=== PATIENT | female | born 1950 | race Caucasian/White ===

== ENCOUNTER 2017-09-24 13:29 | Emergency (ER) | payer MEDICARE ==
[~2017-09-24] VITALS: Ht 165.1 cm; Wt 70.0 kg
[~2017-09-24 13:29] MED LIST: FLUO60TA PO; GABA300C5 PO; LEVO137T2 PO; TEMA15CA PO
[2017-09-24 13:31] VITALS: BP 144/75; PULSE 101; RESP 16; TEMP 98.6; O2SAT 100
--- NOTE | 2017-09-24 13:38 | PD ---
HPI Chief Complaint: Abdominal Pain Time Seen by Provider: 13:36 Travel History International Travel<30 days: No Contact w/Intl Traveler<30days: No Traveled to known affect area: No History of Present Illness HPI Patient is currently on p.o. chemotherapy, for active ovarian CA with metastases according to her latest PET scan about a month ago. She has an upcoming study as well as appointment with her oncologist. However she comes in complaining of diffuse abdominal pain, 8 out of 10, nonradiating but generalized. No alleviating or aggravating factors. No associated factors such as fever, rash, chest pain, back pain, flank pain, nausea, vomiting, diarrhea presently. 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) Psychiatric: Yes (DEPRESSION) Reproductive: No Respiratory: No Immunizations Current: No Thyroid Disease: Yes Ulcer: No Past Surgical History Abdominal Surgery: No (LAPAROTOMY) AICD: No Body Medical Devices: NONE Cardiac Surgery: No Ear Surgery: No Endocrine Surgery: Yes (THYROIDECTOMY) Eye Surgery: No Gynecologic Surgery: Yes (complete hysterectomy) Joint Replacement: No Oral Surgery: Yes (TONSILLECTOMY) Pacemaker: No Thoracic Surgery: No Other Surgery: Yes (THYROID FOR GOITER) Social History Alcohol Use: Yes (DAILY WINE) Tobacco Use: No Substance Use: No Allergies-Medications (Allergen,Severity, Reaction): Coded Allergies: latex (Unverified Adverse Reaction, Severe, SWELLING, 02/05/17) HIVES SOB Reported Meds & Prescriptions Reported Meds & Active Scripts Active Levothyroxine (Levothyroxine Sodium) 137 Mcg Tab 137 Mcg PO DAILY Reported Metoclopramide (Metoclopramide HCl) 10 Mg Tab 10 Mg PO TIDAC Xanax (Alprazolam) 0.25 Mg Tab 0.25 Mg PO HS PRN Omeprazole 40 Mg Cap 40 Mg PO DAILY Fluoxetine (Fluoxetine HCl) 40 Mg Cap 40 Cap PO DAILY Temazepam 15 Mg Cap 15 Mg PO HS PRN Gabapentin 300 Mg Cap 300 Mg PO BID Zejula (Niraparib) 100 Mg Capsule 200 Mg PO HS Review of Systems General / Constitutional: No: Fever Eyes: No: Visual changes HENT: No: Headaches Cardiovascular: No: Chest Pain or Discomfort Respiratory: No: Shortness of Breath Gastrointestinal: Positive: Abdominal Pain Genitourinary: No: Dysuria Musculoskeletal: No: Pain Skin: No Rash Neurologic: No: Weakness Psychiatric: No: Depression Endocrine: No: Polydipsia Hematologic/Lymphatic: No: Easy Bruising Physical Exam Narrative GENERAL: SKIN: Warm and dry. HEAD: Atraumatic. Normocephalic. EYES: Pupils equal and round. No scleral icterus. No injection or drainage. ENT: No nasal bleeding or discharge. Mucous membranes pink and moist. NECK: Trachea midline. No JVD. CARDIOVASCULAR: Regular rate and rhythm. RESPIRATORY: No accessory muscle use. Clear to auscultation. Breath sounds equal bilaterally. GASTROINTESTINAL: Abdomen soft, non-tender, nondistended. MUSCULOSKELETAL: Extremities without clubbing, cyanosis, or edema. No obvious deformities. NEUROLOGICAL: Awake and alert. No obvious cranial nerve deficits. Motor grossly within normal limits. Five out of 5 muscle strength in the arms and legs. Normal speech. PSYCHIATRIC: Appropriate mood and affect; insight and judgment normal. Data Data Last Documented VS Vital Signs Date Time Temp Pulse Resp B/P (MAP) Pulse Ox O2 Delivery O2 Flow Rate FiO2 09/24/17 16:51 76 18 149/77 (101) 99 Room Air 09/24/17 13:31 98.6 Orders Orders Complete Blood Count With Diff (09/24/17 13:41) Comprehensive Metabolic Panel (09/24/17 13:41) Lipase (09/24/17 13:41) Prothrombin Time / Inr (Pt) (09/24/17 13:41) Act Partial Throm Time (Ptt) (09/24/17 13:41) Urinalysis - C+S If Indicated (09/24/17 13:41) Ct Abd/Pel W/O Iv Contrast (09/24/17 13:41) Iv Access Insert/Monitor (09/24/17 13:41) Ecg Monitoring (09/24/17 13:41) Oximetry (09/24/17 13:41) NPO (09/24/17 13:41) Ondansetron Inj (Zofran Inj) (09/24/17 13:45) Sodium Chloride 0.9% Flush (Ns Flush) (09/24/17 13:45) Hydromorphone Pf Inj (Dilaudid Pf Inj) (09/24/17 13:45) Sodium Chlor 0.9% 1000 Ml Inj (Ns 1000 M (09/24/17 13:47) Hydromorphone Pf Inj (Dilaudid Pf Inj) (09/24/17 14:13) Hydromorphone Pf Inj (Dilaudid Pf Inj) (09/24/17 16:00) Hydromorphone Pf Inj (Dilaudid Pf Inj) (09/24/17 16:40) Labs Laboratory Tests Test 09/24/17 14:20 09/24/17 16:50 White Blood Count 6.0 TH/MM3 Red Blood Count 3.63 MIL/MM3 Hemoglobin 12.2 GM/DL Hematocrit 34.3 % Mean Corpuscular Volume 94.4 FL Mean Corpuscular Hemoglobin 33.5 PG Mean Corpuscular Hemoglobin Concent 35.5 % Red Cell Distribution Width 15.1 % Platelet Count 206 TH/MM3 Mean Platelet Volume 7.9 FL Neutrophils (%) (Auto) 71.5 % Lymphocytes (%) (Auto) 18.3 % Monocytes (%) (Auto) 8.6 % Eosinophils (%) (Auto) 0.8 % Basophils (%) (Auto) 0.8 % Neutrophils # (Auto) 4.3 TH/MM3 Lymphocytes # (Auto) 1.1 TH/MM3 Monocytes # (Auto) 0.5 TH/MM3 Eosinophils # (Auto) 0.0 TH/MM3 Basophils # (Auto) 0.1 TH/MM3 CBC Comment DIFF FINAL Differential Comment Prothrombin Time 10.5 SEC Prothromb Time International Ratio 1.0 RATIO Activated Partial Thromboplast Time 25.8 SEC Blood Urea Nitrogen 23 MG/DL Creatinine 1.17 MG/DL Random Glucose 100 MG/DL Total Protein 8.0 GM/DL Albumin 3.7 GM/DL Calcium Level 9.4 MG/DL Alkaline Phosphatase 114 U/L Aspartate Amino Transf (AST/SGOT) 37 U/L Alanine Aminotransferase (ALT/SGPT) 33 U/L Total Bilirubin 0.7 MG/DL Sodium Level 133 MEQ/L Potassium Level 3.6 MEQ/L Chloride Level 99 MEQ/L Carbon Dioxide Level 25.2 MEQ/L Anion Gap 9 MEQ/L Estimat Glomerular Filtration Rate 46 ML/MIN Lipase 167 U/L Urine Color LIGHT-YELLOW Urine Turbidity CLEAR Urine pH 6.0 Urine Specific [place] 1.014 Urine Protein NEG mg/dL Urine Glucose (UA) NEG mg/dL Urine Ketones NEG mg/dL Urine Occult Blood NEG Urine Nitrite NEG Urine Bilirubin NEG Urine Urobilinogen LESS THAN 2.0 MG/DL Urine Leukocyte Esterase NEG Urine RBC 1 /hpf Urine WBC 1 /hpf Urine Squamous Epithelial Cells <1 /hpf Urine Mucus FEW /lpf Microscopic Urinalysis Comment CULT NOT INDICATED MDM Medical Decision Making Medical Screen Exam Complete: Yes Emergency Medical Condition: Yes Medical Record Reviewed: Yes Differential Diagnosis Colitis versus diverticulitis versus hepatitis versus pancreatitis Narrative Course CT abdomen pelvis read by radiologist shows prominent periaortic and retroperitoneal adenopathy measuring Max's of 11 cm and multiple mesenteric masses, masslike lesion seen in the mid appendix measuring 1.7 cm no dilated loops of small or large bowel. No evidence of free fluid. There is a 10 mm nodule in the right lower lung, prior CT in 2013 had demonstrated multiple pulmonary nodules with the largest measuring 7 mm. The findings suggest recurrent tumor. CBC shows no leukocytosis, no anemia, no left shift, and normal platelet count Coagulation profile is within normal limits Chemistry shows normal electrolytes except for BUN of 23 creatinine 1.17 and estimated GFR 46. Normal liver and pancreatic enzymes Diagnosis Primary Impression: Abdominal pain secondary to ovarian CA with metastases Patient Instructions: Ovarian Cancer (DC), Narcotic given in the ED Disposition: 01 DISCHARGE HOME Condition: Stable Jim Vaughan MD Sep 24, 2017 13:38
[2017-09-24] MEDS ORDERED: SODIUM CHLORIDE 0.9% FLUSH 10 ML FLUSH IV FLUSH PRN (13:45)
[2017-09-24] MEDS ORDERED: ONDANSETRON HCL 4 MG/2 ML VIAL IVP ONE (13:45)
[2017-09-24] MEDS ORDERED: HYDROmorphone HCL PF 1 MG/ML VIAL IVS ONE ×2 (13:45→16:00)
[2017-09-24] MEDS ORDERED: SODIUM CHLOR 0.9% 1000 ML INJ 1,000 ML IV SCH (13:47)
[2017-09-24] MEDS ORDERED: HYDROmorphone HCL PF 2 MG/ML VIAL ONE (14:13)
[2017-09-24] MEDS ORDERED: FLUO40CA PO (14:23)
[2017-09-24] MEDS ORDERED: OMEP40CA2 PO (14:23)
[2017-09-24] MEDS ORDERED: ADVI200T17 PO (14:23)
[2017-09-24] MEDS ORDERED: METO10TA PO (14:23)
[2017-09-24] MEDS ORDERED: ALPR.25 PO (14:23)
[2017-09-24] MEDS ORDERED: NIRA100C PO (14:23)
[2017-09-24] MEDS ORDERED: HYDR-3583 PO ×2 (14:23→19:36)
[2017-09-24 14:31] VITALS: BP 140/80; PULSE 81; RESP 24; O2SAT 100
[2017-09-24 14:36] LABS: AUTOMATED NEUTROPHIL # 4.3 TH/MM3 (1.8-7.7); BASOPHIL # 0.1 TH/MM3 (0-0.2); BASOPHIL % 0.8 % (0.0-2.0); EOSINOPHIL % 0.8 % (0.0-4.0); HEMATOCRIT 34.3 % (35.0-46.0); HEMOGLOBIN 12.2 GM/DL (11.6-15.3); LYMPH % 18.3 % (9.0-44.0); LYMPHOCYTE # 1.1 TH/MM3 (1.0-4.8); MEAN CELL VOLUME 94.4 FL (80.0-100.0); MEAN CORPUSCULAR HEMOGLOBIN 33.5 PG (27.0-34.0); MEAN CORPUSCULAR HGB CONC 35.5 % (32.0-36.0); MEAN PLATELET VOLUME 7.9 FL (7.0-11.0); MONO % 8.6 % (0.0-8.0); MONOCYTE # 0.5 TH/MM3 (0-0.9); NEUT % 71.5 % (16.0-70.0); PLATELET COUNT 206 TH/MM3 (150-450); RED BLOOD COUNT 3.63 MIL/MM3 (4.00-5.30); RED CELL DISTRIBUTION WIDTH 15.1 % (11.6-17.2)
[2017-09-24 14:45] LABS: PROTHROMBIN TIME - PATIENT 10.5 SEC (9.8-11.6)
[2017-09-24 14:51] LABS: ALBUMIN 3.7 GM/DL (3.4-5.0); AST (GOT) 37 U/L (15-37); BICARBONATE 25.2 MEQ/L (21.0-32.0); BLOOD UREA NITROGEN 23 MG/DL (7-18); CALCIUM 9.4 MG/DL (8.5-10.1); CHLORIDE 99 MEQ/L (98-107); CREATININE 1.17 MG/DL (0.50-1.00); GLOMERULAR FILTRATION RATE 46 ML/MIN (>89); GLUCOSE,RANDOM 100 MG/DL (74-106); SODIUM (NA) 133 MEQ/L (136-145)
[2017-09-24 14:53] LABS: ALT (GPT) 33 U/L (10-53)
[2017-09-24 14:55] LABS: ALKALINE PHOSPHATASE 114 U/L (45-117); TOTAL BILIRUBIN ADULT 0.7 MG/DL (0.2-1.0)
--- NOTE | 2017-09-24 16:13 | RADRPT ---
EXAM DATE/TIME: 09/24/2017 14:38 [facility] COMPARISON: No previous studies available for comparison. INDICATIONS : History of ovarian cancer, now having severe abdomen pain ORAL CONTRAST: No oral contrast ingested. RADIATION DOSE: 7.81 CTDIvol (mGy) MEDICAL HISTORY : Gastroesophageal reflux disease. Hernia, hiatal. Ovarian cancer SURGICAL HISTORY : Hysterectomy. ENCOUNTER: Initial ACUITY: 1 week PAIN SCALE: 8/10 LOCATION: diffuse abdomen TECHNIQUE: Volumetric scanning of the abdomen and pelvis was performed. Using automated exposure control and ad justment of the mA and/or kV according to patient size, radiation dose was kept as low as reasonably achievable to obtain optimal diagnostic quality images. DICOM format image data is available electro nically for review and comparison. FINDINGS: LOWER LUNGS: There is a solitary noncalcified smoothly marginated nodule in the right costophrenic angle measuring 10 mm. Report of prior CT thorax in 2014 described multiple bilateral pulmonary nodules measuring u p to 7 mm on the right and 6 mm on the left. No evidence of pleural effusion. LIVER: Homogeneous density without lesion noncontrast technique. There is no dilation of the biliary tree. No calcified gallstones. SPLEEN: Normal size without lesion. PANCREAS: Within normal limits. KIDNEYS: Normal in size and shape. There is no mass, stone, or hydronephrosis. ADRENAL GLANDS: Within normal limits. VASCULAR: There is no aortic aneurysm. BOWEL/MESENTERY: No dilated loops of small or large bowel. The appendix is identified in the retrocecal region and th ere is a fusiform masslike appearance to the appendix measuring 1.7 cm in width. This is best seen o n axial image #47 and coronal image #47. The fat about the appendix is not indurated. ABDOMINAL WALL: Within normal limits. RETROPERITONEUM: There is a mantle of retroperitoneal adenopathy in the upper abdomen surrounding the aorta, IVC which contains scattered areas of amorphous calcification. The area of involvement measures in excess of 11 cm in superior/inferior extent and 7.6 cm in width. There is also some induration of the mesenter ic fat and multiple mesenteric masses measuring up to 3.7 cm. BLADDER: No wall thickening or mass. REPRODUCTIVE: No pelvic masses seen. No free fluid. INGUINAL: There is no lymphadenopathy or hernia. MUSCULOSKELETAL: Within normal limits for patient age. CONCLUSION: 1. Prominent periaortic and retroperitoneal adenopathy measuring in excess of 11 cm and multiple mese nteric masses. 2. Masslike lesion seen in the mid appendix measuring 1.7 cm. Cannot exclude malignancy. 3. No dilated loops of small or large bowel. No evidence of free fluid. 4. 10 mm nodule in the right lower lung; prior CT in 2013 had demonstrated multiple pulmonary nodules with the largest measuring 7 mm. 5. The findings suggest recurrent tumor. Recommend FDG PET/CT for restaging and to help in therapeut ic decision making. Eusebio Hermosillo MD on September 24, 2017 at 16:03 Board Certified Radiologist. This report was verified electronically.
[2017-09-24] MEDS ORDERED: HYDROmorphone HCL PF 2 MG/ML VIAL IV ONE (16:40)
[2017-09-24 16:51] VITALS: BP 149/77; PULSE 76; RESP 18; O2SAT 99
[2017-09-24 18:06] LABS: BILIRUBIN, URINE NEG (NEG); BLOOD, URINE NEG (NEG); GLUCOSE,URINE NEG (NEG); KETONE, URINE NEG (NEG); MUCUS URINE FEW /lpf (OCC); NITRITE,URINE NEG (NEG); SQUAMOUS EPITHELIAL CELL URINE <1 /hpf (0-5); URINE COLOR LIGHT-YELLOW (YELLW/STRAW); URINE LEUKOCYTE ESTERASE NEG (NEG)
[2017-09-24] MEDS: fentaNYL 25 MCG/HR PATCH T-DERMAL ONE ×2 (19:00→19:32)
[2017-09-24 19:10] VITALS: BP 141/81; PULSE 67; RESP 16; TEMP 98.1; O2SAT 99
== END 2017-09-24 19:47 | disposition home or self-care (01) ==
LOC: NEPE 13:29
DX: C56.9 Malignant neoplasm of unspecified ovary (principal); C79.9 Secondary malignant neoplasm of unspecified site
CPT/HCPCS: 74176; 80053; 81001; 83690; 85025; 85610; 85730; 96361; 96374; 96375; 99284; J2405; J7030; J1170